=== PATIENT | male | born 1960 | race Caucasian/White ===

== ENCOUNTER 2019-04-20 15:35 | Emergency (ER) | payer OTHER, MEDICAID ==
[~2019-04-20] VITALS: Ht 172.7 cm; Wt 65.8 kg
[2019-04-20] MEDS ORDERED: METFORMIN HCL500 MG PO (15:49)
[2019-04-20] MEDS ORDERED: ACCUNEB SO1.25 MG/1 INH (15:49)
[2019-04-20] MEDS ORDERED: SPIRIVA INH (15:49)
[2019-04-20] MEDS ORDERED: SYMBICORT160 MCG/4. INH (15:49)
[2019-04-20] MEDS ORDERED: HUMIRA10 MG/0.1 INJECTION (15:50)
[2019-04-20] MEDS ORDERED: KEFLEX500 M1 PO (16:02)
[2019-04-20 16:31] VITALS: BP 144/80
== END 2019-04-20 16:32 | disposition home or self-care (01) ==
LOC: M.ERS 15:35
DX: S01.01XA Laceration without foreign body of scalp, initial encounter (principal); E11.9 Type 2 diabetes mellitus without complications; J44.9 Chronic obstructive pulmonary disease, unspecified; K50.90 Crohn's disease, unspecified, without complications; W22.8XXA Striking against or struck by other objects, initial encounter; Y92.89 Other specified places as the place of occurrence of the external cause; Y93.89 Activity, other specified; Y99.8 Other external cause status

== ENCOUNTER 2019-05-05 17:17 | Emergency (ER) | payer MEDICAID ==
[~2019-05-05] VITALS: Ht 175.3 cm; Wt 65.8 kg
[~2019-05-05 17:17] MED LIST: ACCUNEB SO1.25 MG/1 INH; HUMIRA10 MG/0.1 INJECTION; KEFLEX500 M1 PO; METFORMIN HCL500 MG PO; SPIRIVA INH; SYMBICORT160 MCG/4. INH
[2019-05-05] MEDS ORDERED: CLEOCIN HCL150 MG PO (18:14)
[2019-05-05] MEDS ORDERED: ACETAMINOPHEN-1 EAC1 PO (18:15)
[2019-05-05 18:41] VITALS: BP 106/72
== END 2019-05-05 18:42 | disposition home or self-care (01) ==
LOC: M.ERS 17:17
DX: S01.01XD Laceration without foreign body of scalp, subsequent encounter (principal); R51 Headache; E11.9 Type 2 diabetes mellitus without complications; J44.9 Chronic obstructive pulmonary disease, unspecified; K50.90 Crohn's disease, unspecified, without complications; F17.210 Nicotine dependence, cigarettes, uncomplicated; X58.XXXD Exposure to other specified factors, subsequent encounter